=== PATIENT | male | born 1970 | race Caucasian/White ===

== ENCOUNTER → 2016-11-12 | Outpatient (CLI) | payer OTHER | END | disposition home or self-care (01) | LOC: CFH 10:17 | PROVIDERS: ATTEND Nurse Practitioner Primary Care | DX: K76.0 Fatty (change of) liver, not elsewhere classified (principal); N28.1 Cyst of kidney, acquired | CPT/HCPCS: 76700 ==

== ENCOUNTER → 2017-03-27 | Outpatient (CLI) | payer OTHER | END | disposition home or self-care (01) | LOC: CARD 09:43 | PROVIDERS: ATTEND Internal Medicine Cardiovascular Disease | DX: I51.7 Cardiomegaly (principal); I49.3 Ventricular premature depolarization; R94.31 Abnormal electrocardiogram [ECG] [EKG]; Q24.9 Congenital malformation of heart, unspecified; I10 Essential (primary) hypertension; E78.5 Hyperlipidemia, unspecified | CPT/HCPCS: 93017; 93306 ==

== ENCOUNTER 2017-09-23 15:17 | Inpatient (IN) | payer OTHER ==
[~2017-09-23] VITALS: Ht 185.4 cm; Wt 101.3 kg
[2017-09-23] MEDS ORDERED: FAMOTIDINE 20 MG/2 ML IVP ONE (16:00)
[2017-09-23] MEDS ORDERED: SODIUM CHLORIDE 0.9% 1,000ML IVBOLUS ONE (16:00)
[2017-09-23] MEDS ORDERED: ONDANSETRON 2MG/ML, 2ML IVPush ONE (16:00)
[2017-09-23] MEDS ORDERED: SODIUM CHLORIDE FLUSH 10ML SYR IVF ONE (16:00)
[2017-09-23 16:17] LABS: BASOPHILS # (AUTO) 0.01 x10^3/uL (0-0.1); BASOPHILS % (AUTO) 0 % (0-1); EOSINOPHILS # (AUTO) 0.03 x10^3/uL (0-0.4); EOSINOPHILS % (AUTO) 0 % (1-7); LYMPHOCYTES # (AUTO) 1.39 x10^3/uL (1-3.4); LYMPHOCYTES % (AUTO) 11 % (22-44); MD NO; MEAN CORPUSCULAR HEMOGLOBIN 31.5 pg (27.5-34.5); MEAN CORPUSCULAR HGB CONC 33.6 g/dL (33.2-36.2); MEAN CORPUSCULAR VOLUME 93.6 fL (81-97); MEAN PLATELET VOLUME 8.9 fL (7.4-10.4); MONOCYTES # (AUTO) 0.47 x10^3/uL (0.2-0.8); MONOCYTES % (AUTO) 4 % (2-9); NEUTROPHILS # (AUTO) 11.29 x10^3/uL (1.8-6.8); NEUTROPHILS % (AUTO) 86 % (42-75); PLATELET COUNT 256 x10^3/uL (130-400); RED BLOOD COUNT 5.28 x10^6/uL (4.38-5.82); RED CELL DISTRIBUTION WIDTH 14.6 % (9.4-14.8)
[2017-09-23] MEDS ORDERED: FAMOTIDINE 20 MG/2 ML ONE (16:19)
[2017-09-23] MEDS ORDERED: ONDANSETRON 2MG/ML, 2ML ONE (16:19)
[2017-09-23] MEDS ORDERED: MORPHINE SULFATE 4 MG/ML, 1ML ONE ×2 (16:19→16:47)
[2017-09-23] MEDS: MORPHINE SULFATE 4 MG/ML, 1ML IVPush PRN ×2 (16:26→16:51)
[2017-09-23 16:29] LABS: ALBUMIN 4.6 g/dL (3.4-5.0); ANION GAP 13 mmol/L (5-15); CALCIUM 9.6 mg/dL (8.5-10.1); CHLORIDE 101 mmol/L (98-107)
[2017-09-23 16:33] LABS: ALANINE AMINOTRANSFERASE 89 U/L (12-78); ALKALINE PHOSPHATASE 65 U/L (45-117); BILIRUBIN,TOTAL 0.9 mg/dL (0.2-1.0); CREATININE 0.98 mg/dL (0.7-1.3); TOTAL PROTEIN 8.3 g/dL (6.4-8.2)
[2017-09-23] MEDS ORDERED: OMNIPAQUE 350 MG/ML, 100ML BOTTLE ONE (17:16)
[2017-09-23] MEDS ORDERED: LIDOCAINE GEL 2%, 5ML ONE (18:22)
[2017-09-23] MEDS ORDERED: BENZOCAINE 20% SPRAY 0.5ML ONE (18:24)
[2017-09-23] MEDS ORDERED: SODIUM CHLORIDE FLUSH 10ML SYR IVF PRN (18:30)
[2017-09-23] MEDS ORDERED: ETOMIDATE 20 MG/10 ML ONE (19:06)
[2017-09-23] MEDS ORDERED: ATOR-2 PO (19:10)
[2017-09-23] MEDS ORDERED: METO50TA82 PO (19:10)
[2017-09-23] MEDS ORDERED: IRBE300T16 PO (19:10)
[2017-09-23] MEDS ORDERED: AMLO10TA2 PO (19:10)
[2017-09-23] MEDS ORDERED: HYDR12.53 PO (19:10)
[2017-09-23] MEDS ORDERED: hydrALAzine 20 MG/ML, 1ML IVPush PRN (20:00)
[2017-09-23] MEDS ORDERED: ENALAPRILAT 1.25 MG/ML, 2ML IVPush PRN (20:00)
[2017-09-23 20:38] LABS: FREE T4 (FREE THYROXINE) 0.99 ng/dL (0.76-1.46); THYROID STIMULATING HORMONE 0.804 mIU/L (0.358-3.740)
[2017-09-23 20:41] LABS: MICROSCOPIC NOT IND
[2017-09-23 20:53] LABS: CULTURE INDICATED? NO
[2017-09-23] MEDS: ONDANSETRON 2MG/ML, 2ML IVPush PRN (21:42)
[2017-09-23] MEDS: hydrALAzine 20 MG/ML, 1ML IV SCH (21:42)
[2017-09-23] MEDS: morphine SULFATE 10 MG/ML, 1ML IVPush PRN (21:42)
[2017-09-23] MEDS: HEPARIN 5,000 UNITS/ML, 1ML SQ SCH (21:42)
[2017-09-23] MEDS: D5%-0.9% NACL+KCL 20MEQ 1,000 ML IV SCH (21:48)
[2017-09-23 22:08] VITALS: BP 134/86
[2017-09-24] MEDS ORDERED: KETOROLAC 30 MG/1 ML IVPush ONE
[2017-09-24] MEDS: morphine SULFATE 10 MG/ML, 1ML IVPush PRN ×4 (01:25→20:18)
[2017-09-24 01:26] VITALS: BP 126/88
[2017-09-24 02:02] VITALS: BP 134/86
[2017-09-24 04:57] LABS: BASOPHILS # (AUTO) 0.01 x10^3/uL (0-0.1); BASOPHILS % (AUTO) 0 % (0-1); EOSINOPHILS # (AUTO) 0.16 x10^3/uL (0-0.4); EOSINOPHILS % (AUTO) 2 % (1-7); LYMPHOCYTES # (AUTO) 1.64 x10^3/uL (1-3.4); LYMPHOCYTES % (AUTO) 23 % (22-44); MD NO; MEAN CORPUSCULAR HEMOGLOBIN 31.4 pg (27.5-34.5); MEAN CORPUSCULAR HGB CONC 33.5 g/dL (33.2-36.2); MEAN CORPUSCULAR VOLUME 93.8 fL (81-97); MEAN PLATELET VOLUME 9.2 fL (7.4-10.4); MONOCYTES # (AUTO) 0.58 x10^3/uL (0.2-0.8); MONOCYTES % (AUTO) 8 % (2-9); NEUTROPHILS # (AUTO) 4.77 x10^3/uL (1.8-6.8); NEUTROPHILS % (AUTO) 67 % (42-75); PLATELET COUNT 205 x10^3/uL (130-400); RED BLOOD COUNT 4.54 x10^6/uL (4.38-5.82); RED CELL DISTRIBUTION WIDTH 14.6 % (9.4-14.8)
[2017-09-24 05:06] LABS: ALBUMIN 3.4 g/dL (3.4-5.0); ANION GAP 6 mmol/L (5-15); CHLORIDE 107 mmol/L (98-107)
[2017-09-24 05:10] LABS: ALANINE AMINOTRANSFERASE 59 U/L (12-78); ALKALINE PHOSPHATASE 52 U/L (45-117); CHOLESTEROL, TOTAL 164 mg/dL (140-239); CREATININE 0.91 mg/dL (0.7-1.3); HDL CHOL % 25 % (26-37); HDL CHOLESTEROL (DIRECT) 41 mg/dL (40-60); LDL CHOLESTEROL,CALCULATED 83 mg/dL (54-169); TOTAL PROTEIN 6.2 g/dL (6.4-8.2); TRIGLYCERIDES 198 mg/dL (50-200); VLDL CHOLESTEROL 40 mg/dL (0-25)
[2017-09-24] MEDS: D5%-0.9% NACL+KCL 20MEQ 1,000 ML IV SCH ×3 (05:28→20:18)
[2017-09-24] MEDS: hydrALAzine 20 MG/ML, 1ML IV SCH ×4 (05:29→19:23)
[2017-09-24] MEDS: HEPARIN 5,000 UNITS/ML, 1ML SQ SCH ×2 (05:29→18:15)
[2017-09-24 06:45] VITALS: BP 113/77
[2017-09-24 14:00] VITALS: BP 130/75
[2017-09-24] MEDS: KETOROLAC 30 MG/1 ML IVPush SCH (18:15)
[2017-09-24 19:30] VITALS: BP 131/82
[2017-09-25] MEDS: KETOROLAC 30 MG/1 ML IVPush SCH ×4 (00:04→20:52)
[2017-09-25] MEDS: morphine SULFATE 10 MG/ML, 1ML IVPush PRN ×6 (01:54→22:53)
[2017-09-25 01:55] VITALS: BP 130/87
[2017-09-25] MEDS: D5%-0.9% NACL+KCL 20MEQ 1,000 ML IV SCH ×3 (05:43→22:53)
[2017-09-25] MEDS: hydrALAzine 20 MG/ML, 1ML IV SCH ×4 (05:43→20:52)
[2017-09-25] MEDS: HEPARIN 5,000 UNITS/ML, 1ML SQ SCH ×3 (05:43→22:05)
[2017-09-25 07:16] VITALS: BP 115/73
[2017-09-25 08:34] LABS: BASOPHILS # (AUTO) 0.03 x10^3/uL (0-0.1); BASOPHILS % (AUTO) 0 % (0-1); EOSINOPHILS # (AUTO) 0.12 x10^3/uL (0-0.4); EOSINOPHILS % (AUTO) 1 % (1-7); LYMPHOCYTES # (AUTO) 1.72 x10^3/uL (1-3.4); LYMPHOCYTES % (AUTO) 19 % (22-44); MD NO; MEAN CORPUSCULAR HEMOGLOBIN 31.4 pg (27.5-34.5); MEAN CORPUSCULAR HGB CONC 33.6 g/dL (33.2-36.2); MEAN CORPUSCULAR VOLUME 93.4 fL (81-97); MEAN PLATELET VOLUME 9.5 fL (7.4-10.4); MONOCYTES # (AUTO) 0.61 x10^3/uL (0.2-0.8); MONOCYTES % (AUTO) 7 % (2-9); NEUTROPHILS # (AUTO) 6.74 x10^3/uL (1.8-6.8); NEUTROPHILS % (AUTO) 73 % (42-75); PLATELET COUNT 212 x10^3/uL (130-400); RED BLOOD COUNT 4.95 x10^6/uL (4.38-5.82); RED CELL DISTRIBUTION WIDTH 14.7 % (9.4-14.8)
[2017-09-25 08:38] LABS: ANION GAP 7 mmol/L (5-15); CALCIUM 8.5 mg/dL (8.5-10.1); CHLORIDE 108 mmol/L (98-107); CREATININE 0.93 mg/dL (0.7-1.3)
[2017-09-25 11:16] VITALS: BP 138/91
[2017-09-25 12:29] VITALS: BP 138/87
[2017-09-25] MEDS ORDERED: MORPHINE SULFATE 4 MG/ML, 1ML ONE ×2 (15:04→19:08)
[2017-09-25] MEDS: ONDANSETRON 2MG/ML, 2ML IVPush PRN (19:10)
[2017-09-25 19:33] VITALS: BP 129/84
[2017-09-26 01:35] VITALS: BP 135/89
[2017-09-26] MEDS: KETOROLAC 30 MG/1 ML IVPush SCH ×4 (02:48→20:28)
[2017-09-26] MEDS: morphine SULFATE 10 MG/ML, 1ML IVPush PRN ×2 (04:24→20:28)
[2017-09-26 06:16] VITALS: BP 124/90
[2017-09-26] MEDS: hydrALAzine 20 MG/ML, 1ML IV SCH ×4 (06:18→20:29)
[2017-09-26] MEDS: D5%-0.9% NACL+KCL 20MEQ 1,000 ML IV SCH ×2 (06:19→15:00)
[2017-09-26] MEDS: HEPARIN 5,000 UNITS/ML, 1ML SQ SCH ×3 (06:19→20:30)
[2017-09-26 07:25] VITALS: BP 136/87
[2017-09-26 13:39] VITALS: BP 142/93
[2017-09-26] MEDS: METOCLOPRAMIDE 5 MG/ML, 2ML IVPush SCH ×2 (14:18→20:29)
[2017-09-26 19:10] VITALS: BP 140/92
[2017-09-27] MEDS: D5%-0.9% NACL+KCL 20MEQ 1,000 ML IV SCH ×3 (00:30→20:10)
[2017-09-27] MEDS: morphine SULFATE 10 MG/ML, 1ML IVPush PRN ×2 (00:37→04:35)
[2017-09-27 01:25] VITALS: BP 115/76
[2017-09-27] MEDS: KETOROLAC 30 MG/1 ML IVPush SCH ×4 (02:36→20:10)
[2017-09-27] MEDS: METOCLOPRAMIDE 5 MG/ML, 2ML IVPush SCH (02:36)
[2017-09-27] MEDS: HEPARIN 5,000 UNITS/ML, 1ML SQ SCH ×3 (06:02→23:54)
[2017-09-27] MEDS: hydrALAzine 20 MG/ML, 1ML IV SCH ×4 (06:03→20:16)
[2017-09-27 06:54] VITALS: BP 123/75
[2017-09-27 20:00] VITALS: BP 133/88
[2017-09-28 01:50] VITALS: BP 145/84
[2017-09-28] MEDS: KETOROLAC 30 MG/1 ML IVPush SCH ×2 (02:56→08:51)
[2017-09-28] MEDS: ONDANSETRON 2MG/ML, 2ML IVPush PRN (03:02)
[2017-09-28] MEDS: D5%-0.9% NACL+KCL 20MEQ 1,000 ML IV SCH (03:45)
[2017-09-28] MEDS: hydrALAzine 20 MG/ML, 1ML IV SCH ×2 (06:20→11:59)
[2017-09-28 08:35] VITALS: BP 132/97
[2017-09-28] MEDS: HEPARIN 5,000 UNITS/ML, 1ML SQ SCH (08:56)
== END 2017-09-28 15:13 | disposition home or self-care (01) | DRG 390 ==
LOC: ED 19:30 → EDIP 19:40 → 3NE 21:16
PROVIDERS: ADMIT Internal Medicine; ATTEND Family Medicine
DX: K56.601 Complete intestinal obstruction, unspecified as to cause (principal); D72.823 Leukemoid reaction; E78.5 Hyperlipidemia, unspecified; I10 Essential (primary) hypertension; Z80.0 Family history of malignant neoplasm of digestive organs; K66.0 Peritoneal adhesions (postprocedural) (postinfection); Z82.49 Family history of ischemic heart disease and other diseases of the circulatory system; Z87.74 Personal history of (corrected) congenital malformations of heart and circulatory system
CPT/HCPCS: 36415; 74018; 74021; 74177; 74250; 80048; 80053; 80061; 81003; 83036; 83690; 83735; 84439; 84443; 85025; 96361; 96374; 96375; J1644; J1885; J2405; Q9967; J0360; J2270; J2765; J3480; J7030; S0028

== ENCOUNTER 2019-07-31 20:55 | Inpatient (IN) | payer OTHER ==
[~2019-07-31] VITALS: Ht 185.4 cm; Wt 104.0 kg
[~2019-07-31 20:55] MED LIST: AMLO10TA8 PO; ASPI-515 PO; ATOR-2 PO; HYDR12.517 PO; IRBE300T16 PO; METO50TA82 PO; fish oil
[2019-07-31] MEDS ORDERED: ONDANSETRON 2MG/ML, 2ML ONE (21:45)
[2019-07-31] MEDS ORDERED: HYDROmorphone 1 MG/ML, 1ML INJ ONE ×2 (21:45→22:20)
[2019-07-31 21:56] LABS: BASOPHILS # (AUTO) 0.04 x10^3/uL (0-0.1); BASOPHILS % (AUTO) 0 % (0-1); EOSINOPHILS # (AUTO) 0.13 x10^3/uL (0-0.4); EOSINOPHILS % (AUTO) 1 % (1-7); LYMPHOCYTES # (AUTO) 1.88 x10^3/uL (1-3.4); LYMPHOCYTES % (AUTO) 14 % (22-44); MD NO; MEAN CORPUSCULAR HEMOGLOBIN 29.1 pg (27.5-34.5); MEAN CORPUSCULAR HGB CONC 32.8 g/dL (33.2-36.2); MEAN CORPUSCULAR VOLUME 88.7 fL (81-97); MEAN PLATELET VOLUME 9.9 fL (7.4-10.4); MONOCYTES # (AUTO) 0.48 x10^3/uL (0.2-0.8); MONOCYTES % (AUTO) 4 % (2-9); NEUTROPHILS # (AUTO) 11.12 x10^3/uL (1.8-6.8); NEUTROPHILS % (AUTO) 82 % (42-75); PLATELET COUNT 207 x10^3/uL (130-400); RED BLOOD COUNT 5.79 x10^6/uL (4.38-5.82); RED CELL DISTRIBUTION WIDTH 14.3 % (9.4-14.8)
[2019-07-31] MEDS ORDERED: HYDROmorphone 2 MG/ML, 1ML IVPush PRN (22:00)
[2019-07-31] MEDS ORDERED: SODIUM CHLORIDE FLUSH 10ML SYR IVF ONE (22:00)
[2019-07-31] MEDS ORDERED: ONDANSETRON 2MG/ML, 2ML IVPush ONE (22:00)
[2019-07-31 22:06] LABS: ALANINE AMINOTRANSFERASE 40 U/L (12-78); ALBUMIN 4.7 g/dL (3.4-5.0); ANION GAP 9 mmol/L (5-15); CALCIUM 10.1 mg/dL (8.5-10.1); CHLORIDE 104 mmol/L (98-107); CREATININE 1.07 mg/dL (0.7-1.3)
[2019-07-31 22:08] LABS: ALKALINE PHOSPHATASE 90 U/L (45-117); BILIRUBIN,TOTAL 0.6 mg/dL (0.2-1.0); TOTAL PROTEIN 8.6 g/dL (6.4-8.2)
[2019-07-31] MEDS ORDERED: PROMETHAZINE 25 MG/ML, 1ML ONE (22:29)
[2019-07-31] MEDS ORDERED: PROMETHAZINE 25 MG/ML, 1ML IM ONE (22:30)
[2019-07-31] MEDS ORDERED: HYDROmorphone 1 MG/ML, 1ML INJ IV ONE (22:30)
[2019-07-31] MEDS ORDERED: HYDROmorphone 1 MG/ML, 1ML INJ IVPush PRN (22:30)
[2019-07-31 22:42] LABS: TROPONIN I < 0.015 ng/mL (0.000-0.045)
--- NOTE | 2019-07-31 22:52 | NUR ---
PT PRESENTS WITH EXTREME ABD PAIN THAT STARTED ACUTELY TODAY. HX SBO. PT WITH PAIN 26/04, STATES THAT PAIN IS SO BAD IT FEELS LIKE HE IS GOING TO PASS OUT. +N/V, ABD FULL IN APPEARANCE AND FIRM TO THE TOUCH. PAIN IN ALL QUADRANTS. PIC PLACED AND PT MEDICATED FOR PAIN PER EMAR Addendum: 08/01/19 at 0130 by JOJO PIV PLACED*
[2019-07-31 22:54] LABS: MICROSCOPIC INDICATED
[2019-07-31 23:01] LABS: CULTURE INDICATED? NO
[2019-07-31] MEDS ORDERED: SODIUM CHLORIDE 0.9% 1,000ML IVBOLUS ONE (23:30)
[2019-08-01] MEDS ORDERED: SODIUM CHLORIDE 0.9% 1,000 ML IV ONE (00:41)
[2019-08-01] MEDS ORDERED: HYDROmorphone 1 MG/ML, 1ML INJ ONE (00:54)
--- NOTE | 2019-08-01 01:17 | NUR ---
Leonie stevenson in ED - 08/01/19 at 0118 by GAMALIEL PT STATES HE DOES NOT WANT AN NG TUBE AT THIS TIME BUT HE AGREED IF NAUSEA/VOMITTING RETURNS, HE WILL ACCEPT NG TUBE.
--- NOTE | 2019-08-01 01:18 | NUR ---
PT STATES HE DOES NOT WANT AN NG TUBE AT THIS TIME BUT HE AGREED IF NAUSEA/VOMITTING RETURNS, HE WILL ACCEPT NG TUBE.
--- NOTE | 2019-08-01 01:18 | NUR ---
REPORT GIVEN TO MARCELO LUGO
[2019-08-01] MEDS ORDERED: ONDANSETRON 2MG/ML, 2ML IVPush PRN (01:30)
[2019-08-01] MEDS ORDERED: morphine SULFATE 10 MG/ML, 1ML IVPush PRN (01:30)
[2019-08-01] MEDS ORDERED: OMNIPAQUE 350 MG/ML, 100ML BOTTLE ONE (02:04)
[2019-08-01 02:30] VITALS: BP 130/87
[2019-08-01] MEDS ORDERED: HYDROmorphone 1 MG/ML, 1ML INJ IM PRN (02:30)
[2019-08-01] MEDS: SODIUM CHLORIDE 0.9% 1,000 ML IV SCH (03:20)
[2019-08-01] MEDS ORDERED: HYDROmorphone 1 MG/ML, 1ML INJ IV PRN ×2 (03:30→06:30)
[2019-08-01 06:55] VITALS: BP 119/74
[2019-08-01] MEDS: HYDROmorphone 2 MG/ML, 1ML IV PRN ×3 (09:23→19:56)
[2019-08-01 13:49] VITALS: BP 116/76
[2019-08-01 21:35] VITALS: BP 108/68
[2019-08-02] MEDS: SODIUM CHLORIDE 0.9% 1,000 ML IV SCH ×2 (00:34→08:34)
[2019-08-02] MEDS: HYDROmorphone 2 MG/ML, 1ML IV PRN ×2 (00:34→06:37)
[2019-08-02 02:53] VITALS: BP 126/84
[2019-08-02 05:36] LABS: BASOPHILS # (AUTO) 0.02 x10^3/uL (0-0.1); BASOPHILS % (AUTO) 0 % (0-1); EOSINOPHILS # (AUTO) 0.32 x10^3/uL (0-0.4); EOSINOPHILS % (AUTO) 5 % (1-7); LYMPHOCYTES # (AUTO) 1.64 x10^3/uL (1-3.4); LYMPHOCYTES % (AUTO) 27 % (22-44); MD NO; MEAN CORPUSCULAR HEMOGLOBIN 29.7 pg (27.5-34.5); MEAN CORPUSCULAR HGB CONC 33.1 g/dL (33.2-36.2); MEAN CORPUSCULAR VOLUME 89.7 fL (81-97); MONOCYTES # (AUTO) 0.43 x10^3/uL (0.2-0.8); MONOCYTES % (AUTO) 7 % (2-9); NEUTROPHILS # (AUTO) 3.62 x10^3/uL (1.8-6.8); NEUTROPHILS % (AUTO) 60 % (42-75); PLATELET COUNT 170 x10^3/uL (130-400); RED BLOOD COUNT 4.51 x10^6/uL (4.38-5.82); RED CELL DISTRIBUTION WIDTH 14.1 % (9.4-14.8)
[2019-08-02 05:40] LABS: ALBUMIN 3.2 g/dL (3.4-5.0); CALCIUM 8.2 mg/dL (8.5-10.1); CHLORIDE 108 mmol/L (98-107)
[2019-08-02 05:43] LABS: ANION GAP 7 mmol/L (5-15); CREATININE 0.85 mg/dL (0.7-1.3)
[2019-08-02 06:52] VITALS: BP 162/71
[2019-08-02 13:20] VITALS: BP 123/91
== END 2019-08-02 16:00 | disposition home or self-care (01) | DRG 392 ==
LOC: ED 21:24 → EDIP 08-01 00:41 → 4NE 08-01 02:02 → DCLOUNGE 08-02 15:50
PROVIDERS: ADMIT Internal Medicine; ATTEND Family Medicine
DX: K52.9 Noninfective gastroenteritis and colitis, unspecified (principal); E78.5 Hyperlipidemia, unspecified; F10.20 Alcohol dependence, uncomplicated; I10 Essential (primary) hypertension; K57.30 Diverticulosis of large intestine without perforation or abscess without bleeding; Z53.20 Procedure and treatment not carried out because of patient's decision for unspecified reasons; N28.1 Cyst of kidney, acquired; Z80.0 Family history of malignant neoplasm of digestive organs; Z82.49 Family history of ischemic heart disease and other diseases of the circulatory system; Z90.49 Acquired absence of other specified parts of digestive tract; Z79.899 Other long term (current) drug therapy; Z79.82 Long term (current) use of aspirin
CPT/HCPCS: 36415; 74177; 74248; 80053; 80069; 81001; 83690; 83735; 84484; 85025; 93005; 96372; 96374; G0378; J1170; J2405; J2550; Q9967; J7030

== ENCOUNTER 2020-08-02 23:02 | Inpatient (IN) | payer OTHER ==
[~2020-08-02] VITALS: Ht 182.9 cm; Wt 102.0 kg
[~2020-08-02 23:02] MED LIST changes: +AMLO-211 PO; -AMLO10TA8 PO; -IRBE300T16 PO; +IRBE300T8 PO
[2020-08-02] MEDS ORDERED: MORPHINE SULFATE 4 MG/ML, 1ML ONE (23:46)
[2020-08-02] MEDS ORDERED: ONDANSETRON 2MG/ML, 2ML ONE (23:46)
[2020-08-02 23:58] LABS: BASOPHILS % (AUTO) 0 % (0-1); EOSINOPHILS % (AUTO) 1 % (1-7); LYMPHOCYTES % (AUTO) 14 % (22-44); MEAN CORPUSCULAR HEMOGLOBIN 29.6 pg (27.5-34.5); MEAN PLATELET VOLUME 9.7 fL (7.4-10.4); MONOCYTES % (AUTO) 5 % (2-9); NEUTROPHILS % (AUTO) 81 % (42-75); PLATELET COUNT 207 x10^3/uL (130-400); RED BLOOD COUNT 5.66 x10^6/uL (4.38-5.82); RED CELL DISTRIBUTION WIDTH 14.2 % (9.4-14.8)
[2020-08-03] MEDS ORDERED: ONDANSETRON 2MG/ML, 2ML IVPush ONE
[2020-08-03] MEDS ORDERED: SODIUM CHLORIDE FLUSH 10ML SYR IVF ONE
[2020-08-03 00:03] LABS: ALBUMIN 4.4 g/dL (3.4-5.0); ANION GAP 7 mmol/L (5-15); CALCIUM 9.7 mg/dL (8.5-10.1); CHLORIDE 105 mmol/L (98-107)
[2020-08-03 00:04] LABS: MD NO
[2020-08-03 00:06] LABS: ALANINE AMINOTRANSFERASE 36 U/L (12-78); ALKALINE PHOSPHATASE 80 U/L (45-117); TOTAL PROTEIN 8.3 g/dL (6.4-8.2)
[2020-08-03] MEDS ORDERED: MORPHINE SULFATE 4 MG/ML, 1ML ONE (00:15)
[2020-08-03] MEDS: MORPHINE SULFATE 4 MG/ML, 1ML IVPush PRN ×2 (00:20)
[2020-08-03] MEDS ORDERED: OMNIPAQUE 350 MG/ML, 100ML BOTTLE ONE (00:48)
[2020-08-03] MEDS ORDERED: HYDROmorphone 1 MG/ML, 1ML INJ IVPush PRN ×2 (01:00→01:30)
[2020-08-03] MEDS ORDERED: HYDROmorphone 1 MG/ML, 1ML INJ ONE (01:05)
[2020-08-03] MEDS ORDERED: BENZOCAINE AEROSOL SPRAY 20%, 60ML ONE (01:05)
[2020-08-03] MEDS ORDERED: LIDOCAINE-MPF 1%, 5ML ONE (01:05)
[2020-08-03] MEDS ORDERED: LORazepam 2 MG/ML, 1ML ONE (01:06)
--- NOTE | 2020-08-03 01:10 | NUR ---
PT MEDICATED PER SEP FOR PAIN AND PREMEDICATION FOR NG PLACEMENT.
--- NOTE | 2020-08-03 01:25 | NUR ---
16FR NG TUBE INERTED AT THIS TIME WITH LARGE AMOUNT OF BROWN LIQUID DRAINING, PT TOLERATED WELL. REPORT TO PRIMARY RN
[2020-08-03] MEDS ORDERED: BENZOCAINE AEROSOL SPRAY 20%, 60ML TP ONE (01:30)
[2020-08-03] MEDS ORDERED: LIDOCAINE-MPF 1%, 5ML INFIL ONE (01:30)
[2020-08-03] MEDS ORDERED: LORazepam 2 MG/ML, 1ML IVPush ONE (01:30)
[2020-08-03 03:11] VITALS: BP 136/88
[2020-08-03] MEDS: LACTATED RINGERS 1,000 ML IV SCH ×3 (03:48→21:16)
[2020-08-03] MEDS: morphine SULFATE 10 MG/ML, 1ML IV PRN ×4 (04:05→21:16)
[2020-08-03] MEDS: ONDANSETRON 2MG/ML, 2ML IVPush PRN ×3 (04:05→21:15)
[2020-08-03 06:06] VITALS: BP 121/80
[2020-08-03 09:08] LABS: BASOPHILS % (AUTO) 0 % (0-1); EOSINOPHILS % (AUTO) 2 % (1-7); LYMPHOCYTES % (AUTO) 23 % (22-44); MEAN CORPUSCULAR HEMOGLOBIN 29.6 pg (27.5-34.5); MEAN CORPUSCULAR HGB CONC 33.5 g/dL (33.2-36.2); MEAN PLATELET VOLUME 9.9 fL (7.4-10.4); MONOCYTES % (AUTO) 8 % (2-9); NEUTROPHILS % (AUTO) 67 % (42-75); PLATELET COUNT 178 x10^3/uL (130-400); RED BLOOD COUNT 4.89 x10^6/uL (4.38-5.82); RED CELL DISTRIBUTION WIDTH 14.3 % (9.4-14.8)
[2020-08-03 09:10] LABS: MD NO
[2020-08-03 09:15] LABS: ANION GAP 3 mmol/L (5-15); CALCIUM 8.7 mg/dL (8.5-10.1); CHLORIDE 107 mmol/L (98-107); CREATININE 0.97 mg/dL (0.7-1.3)
[2020-08-03 09:58] LABS: MICROSCOPIC NOT IND
[2020-08-03 19:41] VITALS: BP 123/78
[2020-08-04 01:04] VITALS: BP 121/80
[2020-08-04] MEDS: morphine SULFATE 10 MG/ML, 1ML IV PRN ×4 (01:12→23:00)
[2020-08-04] MEDS: LACTATED RINGERS 1,000 ML IV SCH ×2 (04:45→13:25)
[2020-08-04 05:26] LABS: ANION GAP 3 mmol/L (5-15); CALCIUM 8.8 mg/dL (8.5-10.1); CHLORIDE 103 mmol/L (98-107); CREATININE 1.01 mg/dL (0.7-1.3)
[2020-08-04 07:22] VITALS: BP 121/72
[2020-08-04] MEDS ORDERED: METOCLOPRAMIDE 5 MG/ML, 2ML IVPush SCH (09:00)
[2020-08-04] MEDS: BISACODYL 10 MG SUPP PR SCH (09:57)
[2020-08-04 13:05] VITALS: BP 121/70
[2020-08-04 19:37] VITALS: BP 135/89
[2020-08-05] MEDS: LACTATED RINGERS 1,000 ML IV SCH ×2 (00:59→10:53)
[2020-08-05 02:37] VITALS: BP 120/77
[2020-08-05] MEDS: morphine SULFATE 10 MG/ML, 1ML IV PRN ×3 (02:39→09:47)
[2020-08-05 06:59] VITALS: BP 123/77
[2020-08-05] MEDS: BISACODYL 10 MG SUPP PR SCH (09:16)
[2020-08-05] MEDS ORDERED: METOCLOPRAMIDE 5 MG/ML, 2ML IVPush SCH (09:30)
[2020-08-05 12:57] VITALS: BP 133/80
[2020-08-05] MEDS ORDERED: POLYETHYLENE GLYCOL 17 GM PACKET PO SCH (14:30)
== END 2020-08-05 16:42 | disposition home or self-care (01) | DRG 390 ==
LOC: ED 08-03 01:33 → EDIP 08-03 02:34 → 4NW 08-03 03:07 → DCLOUNGE 08-05 16:40
PROVIDERS: ADMIT Family Medicine; ATTEND Family Medicine
PROC: 0D9670Z Drainage of Stomach with Drainage Device, Via Natural or Artificial Opening (ICD-10-PCS; principal; 2020-08-03)
DX: K56.609 Unspecified intestinal obstruction, unspecified as to partial versus complete obstruction (principal); Z20.822 Contact with and (suspected) exposure to COVID-19; I10 Essential (primary) hypertension; E78.5 Hyperlipidemia, unspecified; E66.9 Obesity, unspecified; K52.9 Noninfective gastroenteritis and colitis, unspecified; Z79.899 Other long term (current) drug therapy; Z90.49 Acquired absence of other specified parts of digestive tract; Z80.0 Family history of malignant neoplasm of digestive organs; Z82.49 Family history of ischemic heart disease and other diseases of the circulatory system; Z68.30 Body mass index [BMI] 30.0-30.9, adult; Z79.82 Long term (current) use of aspirin
CPT/HCPCS: 36415; 74177; 74250; 80048; 80053; 81003; 83605; 83690; 84145; 85025; 99285; G0378; J1170; J2405; Q9967; J2060; J2270; J2765; J7120